=== PATIENT | female | born 1975 | race Caucasian/White ===

== ENCOUNTER 2018-06-17 12:41 | Inpatient (IN) | payer MEDICAID ==
[2018-06-17 14:42] LABS: URINE PH (Dip) POC 5.5 (5.0-8.5)
[2018-06-17 14:42] LABS: URINE BLOOD (Dip) POC 2+ (NEGATIVE); URINE KETONES (Dip) POC Negative (NEGATIVE); URINE LEUKOCYTE EST (Dip) POC Trace (NEGATIVE); URINE NITRITE (Dip) POC Positive (NEGATIVE); URINE TOTAL PROTEIN POC 3+ (NEGATIVE)
[2018-06-17 14:43] LABS: ADD MAN DIFF? NO
[2018-06-17 14:46] LABS: WHITE BLOOD COUNT 18.9 10^3/ul (4.8-10.8)
[2018-06-17 14:47] LABS: BASOPHIL # 0.1 10^3/ul (0.0-0.1); BASOPHILS % 0.6 % (0.0-2.0); EOSINOPHILS # 0.5 10^3/ul (0.0-0.5); EOSINOPHILS % 2.9 % (0.0-7.0); HEMATOCRIT 29.6 % (37.0-47.0); HEMOGLOBIN 9.3 g/dl (12.0-16.0); LYMPHOCYTES # 2.8 10^3/ul (0.8-2.9); LYMPHOCYTES % 14.9 % (15.0-51.0); MEAN CORPUSCULAR HEMOGLOBIN 26.3 pg (29.0-33.0); MEAN CORPUSCULAR HGB CONC 31.4 g/dl (32.0-37.0); MEAN CORPUSCULAR VOLUME 83.9 fl (82.0-101.0); MONOCYTE # 1.5 10^3/ul (0.3-0.9); NEUTROPHIL # 13.6 10^3/ul (1.6-7.5); NEUTROPHILS % 72.1 % (39.0-77.0); NUCLEATED RED BLOOD CELLS% 0.1 /100WBC (0.0-0.0); PLATELET COUNT 282 10^3/UL (140-415); RED BLOOD COUNT 3.53 10^6/ul (4.20-5.40); RED CELL DISTRIBUTION WIDTH 14.6 % (11.5-14.5)
[2018-06-17] MEDS: ALBUTEROL 0.083% (NEB) 2.5 MG/3 ML AMP INH (14:51)
[2018-06-17] MEDS: IPRATROPIUM (NEB) 0.5 MG/2.5 ML AMP INH (14:51)
[2018-06-17 15:06] LABS: ANION GAP 16 (8-16); BLOOD UREA NITROGEN 38 mg/dl (7-20); CALCIUM 8.9 mg/dl (8.4-10.2); CARBON DIOXIDE 22 mmol/L (21-31); CHLORIDE 108 mmol/L (97-110); GLUCOSE 216 mg/dl (70-220); INR 0.98; POTASSIUM 3.8 mmol/L (3.5-5.1); PROTIME 13.1 Sec (11.9-14.9); SODIUM 142 mmol/L (135-144)
[2018-06-17 15:07] LABS: PARTIAL THROMBOPLASTIN TIME 27.5 Sec (25.0-35.0)
[2018-06-17 15:09] LABS: D-DIMER 1337.98 ng/ml (<460)
[2018-06-17 15:18] LABS: B-TYPE NATRIURETIC PEPTIDE 6020 PG/ML (0-125); TROPONIN-I 0.022 ng/ml (0.000-0.120)
[2018-06-17] MEDS: SOD CHLORIDE 0.9% 1,000 ML IV ×2 (15:44→18:14)
[2018-06-17] MEDS: CEFTRIAXONE 1 GM/50 ML (PMX) 50 ML IVPB (15:46)
[2018-06-17] MEDS ORDERED: HYDROCODONE/APAP (5/325) TAB PO (16:00)
[2018-06-17] MEDS ORDERED: MAGNESIUM HYDROXIDE 30ML CUP PO (16:00)
[2018-06-17] MEDS ORDERED: ONDANSETRON 4 MG INJ IV (16:00)
[2018-06-17] MEDS ORDERED: BISACODYL (EC) 5 MG TAB PO (16:00)
[2018-06-17] MEDS ORDERED: NACL 0.9% 3 ML SYG IV (16:00)
[2018-06-17] MEDS ORDERED: ALBUTEROL/IPRATROPIUM (NEB) 3 ML AMP HHN (16:00)
[2018-06-17] MEDS ORDERED: DOCUSATE SODIUM 100 MG CAP PO (16:00)
[2018-06-17] MEDS ORDERED: GLUCAGON 1 MG INJ IM (16:30)
[2018-06-17] MEDS ORDERED: GLUCOSE GEL 15 GRAM TUBE PO ×2 (16:30)
[2018-06-17] MEDS ORDERED: DEXTROSE 50% 50 ML SYRINGE IV ×2 (16:30)
[2018-06-17] MEDS ORDERED: GLUCOSE GEL 15 GRAM TUBE BUCCAL (16:30)
[2018-06-17] MEDS: ACETAMINOPHEN 325 MG TAB PO (18:13)
[2018-06-17] MEDS: AZITHROMYCIN 500MG/NS (PMX) 250 ML IV (18:13)
[2018-06-17 19:18] LABS: ADD UMIC YES; UR ASCORBIC ACID NEGATIVE (NEGATIVE); UR BACTERIA FEW /HPF (NONE SEEN); UR BILIRUBIN (Dip) NEGATIVE (NEGATIVE); UR BLOOD (Dip) 2+ mg/dL (NEGATIVE); UR CLARITY SLIGHTLY CLOUDY (CLEAR); UR COLOR YELLOW (YELLOW); UR GLUCOSE (Dip) 2+ mg/dL (NEGATIVE); UR KETONES (Dip) NEGATIVE (NEGATIVE); UR LEUKOCYTE ESTERASE (Dip) TRACE Leu/ul (NEGATIVE); UR MUCUS FEW /HPF (NONE SEEN); UR NITRITE (Dip) NEGATIVE (NEGATIVE); UR RBC 3 /HPF (0-5); UR SPECIFIC GRAVITY (Dip) 1.015 (1.003-1.030); UR SQUAMOUS EPITHELIAL CELL FEW /HPF (FEW); UR TOTAL PROTEIN (Dip) 2+ mg/dl (NEGATIVE); UR UROBILINOGEN (Dip) NEGATIVE (NEGATIVE); UR WBC 9 /HPF (0-5)
[2018-06-17 19:22] LABS: LACTIC ACID 1.5 mmol/L (0.5-2.0)
[2018-06-17] MEDS: ATORVASTATIN 20 MG TAB PO (20:03)
[2018-06-17] MEDS: METOPROLOL 25 MG TAB PO (20:05)
[2018-06-17] MEDS: INSULIN ASPART [NOVOLOG] 3 ML PEN SC ×3 (20:51→22:45)
[2018-06-17] MEDS: ALBUTEROL/IPRATROPIUM (NEB) 3 ML AMP HHN (20:55)
[2018-06-17] MEDS: GUAIFENESIN/CODEINE 5ML CUP PO (21:40)
[2018-06-17] MEDS: LEVOFLOXACIN 500MG/D5W (PMX) 100 ML IVPB (21:43)
[2018-06-17] MEDS: INSULIN GLARGINE [LANTus] (100 UNITS/ML) SYG SC (22:40)
[2018-06-18] MEDS: ACCU-CHEK XX (02:00)
[2018-06-18 06:14] LABS: ADD MAN DIFF? NO
[2018-06-18 06:40] LABS: BASOPHIL # 0.1 10^3/ul (0.0-0.1); BASOPHILS % 0.8 % (0.0-2.0); EOSINOPHILS # 0.5 10^3/ul (0.0-0.5); HEMATOCRIT 25.1 % (37.0-47.0); HEMOGLOBIN 7.9 g/dl (12.0-16.0); LYMPHOCYTES # 1.7 10^3/ul (0.8-2.9); LYMPHOCYTES % 13.8 % (15.0-51.0); MEAN CORPUSCULAR HEMOGLOBIN 26.5 pg (29.0-33.0); MEAN CORPUSCULAR HGB CONC 31.5 g/dl (32.0-37.0); MEAN CORPUSCULAR VOLUME 84.2 fl (82.0-101.0); MEAN PLATELET VOLUME 10.8 fl (7.4-10.4); MONOCYTE # 1.1 10^3/ul (0.3-0.9); MONOCYTES % 9.4 % (0.0-11.0); NEUTROPHIL # 8.6 10^3/ul (1.6-7.5); NEUTROPHILS % 71.2 % (39.0-77.0); PLATELET COUNT 218 10^3/UL (140-415); RED BLOOD COUNT 2.98 10^6/ul (4.20-5.40); RED CELL DISTRIBUTION WIDTH 14.7 % (11.5-14.5)
[2018-06-18 06:40] LABS: WHITE BLOOD COUNT 12.1 10^3/ul (4.8-10.8)
[2018-06-18 07:02] LABS: ALANINE AMINOTRANSFERASE 12 IU/L (13-69); ALBUMIN 2.8 g/dl (3.3-4.9); ALKALINE PHOSPHATASE 84 IU/L (42-121); ANION GAP 13 (8-16); ASPARTATE AMINO TRANSFERASE 17 IU/L (15-46); BILIRUBIN,INDIRECT 0.2 mg/dl (0-1.1); BILIRUBIN,TOTAL 0.2 mg/dl (0.2-1.3); BLOOD UREA NITROGEN 34 mg/dl (7-20); CARBON DIOXIDE 22 mmol/L (21-31); CHLORIDE 113 mmol/L (97-110); CREATININE 2.25 mg/dl (0.44-1.00); GLUCOSE 132 mg/dl (70-220); MAGNESIUM 1.9 mg/dl (1.7-2.5); POTASSIUM 4.1 mmol/L (3.5-5.1); SODIUM 144 mmol/L (135-144); TOTAL PROTEIN 5.9 g/dl (6.1-8.1)
[2018-06-18] MEDS: ALBUTEROL/IPRATROPIUM (NEB) 3 ML AMP HHN ×3 (07:45→19:47)
[2018-06-18] MEDS: INSULIN ASPART [NOVOLOG] 3 ML PEN SC ×7 (07:49→20:28)
[2018-06-18] MEDS: METOPROLOL 25 MG TAB PO ×2 (08:04→20:25)
[2018-06-18] MEDS: LISINOPRIL 5 MG TAB PO (08:04)
[2018-06-18 08:11] LABS: HEMOGLOBIN A1C 8.5 % (0-5.9)
[2018-06-18] MEDS ORDERED: LABETALOL HCL 20MG INJ IV (10:30)
[2018-06-18] MEDS: AMLODIPINE 5 MG TAB PO (11:57)
[2018-06-18] MEDS: LEVOFLOXACIN 250MG/D5W (PMX) 50 ML IVPB (15:21)
[2018-06-18] MEDS: ACETAMINOPHEN 325 MG TAB PO (16:12)
[2018-06-18] MEDS: ATORVASTATIN 20 MG TAB PO (20:24)
[2018-06-18] MEDS: INSULIN GLARGINE [LANTus] (100 UNITS/ML) SYG SC (20:27)
[2018-06-19] MEDS: ACCU-CHEK XX (02:00)
[2018-06-19 06:17] LABS: ADD MAN DIFF? NO
[2018-06-19 06:30] LABS: BASOPHIL # 0.1 10^3/ul (0.0-0.1); BASOPHILS % 0.8 % (0.0-2.0); EOSINOPHILS # 0.5 10^3/ul (0.0-0.5); EOSINOPHILS % 4.8 % (0.0-7.0); HEMATOCRIT 25.1 % (37.0-47.0); LYMPHOCYTES # 1.7 10^3/ul (0.8-2.9); LYMPHOCYTES % 16.2 % (15.0-51.0); MEAN CORPUSCULAR HGB CONC 31.9 g/dl (32.0-37.0); MEAN CORPUSCULAR VOLUME 84.8 fl (82.0-101.0); MEAN PLATELET VOLUME 10.6 fl (7.4-10.4); MONOCYTES % 9.4 % (0.0-11.0); NEUTROPHILS % 67.7 % (39.0-77.0); PLATELET COUNT 229 10^3/UL (140-415); RED BLOOD COUNT 2.96 10^6/ul (4.20-5.40); RED CELL DISTRIBUTION WIDTH 14.5 % (11.5-14.5)
[2018-06-19 06:30] LABS: WHITE BLOOD COUNT 10.3 10^3/ul (4.8-10.8)
[2018-06-19 07:19] LABS: ANION GAP 15 (8-16); BLOOD UREA NITROGEN 34 mg/dl (7-20); CALCIUM 8.5 mg/dl (8.4-10.2); CARBON DIOXIDE 22 mmol/L (21-31); CHLORIDE 112 mmol/L (97-110); CREATININE 2.09 mg/dl (0.44-1.00); GLUCOSE 87 mg/dl (70-220); POTASSIUM 4.1 mmol/L (3.5-5.1); SODIUM 145 mmol/L (135-144)
[2018-06-19] MEDS: INSULIN ASPART [NOVOLOG] 3 ML PEN SC ×6 (07:58→17:20)
[2018-06-19] MEDS: ALBUTEROL/IPRATROPIUM (NEB) 3 ML AMP HHN ×2 (08:06→14:09)
[2018-06-19] MEDS: AMLODIPINE 5 MG TAB PO (08:29)
[2018-06-19] MEDS: METOPROLOL 25 MG TAB PO (08:29)
[2018-06-19 13:09] LABS: ADD UMIC YES; UR ASCORBIC ACID NEGATIVE (NEGATIVE); UR BILIRUBIN (Dip) NEGATIVE (NEGATIVE); UR BLOOD (Dip) 1+ mg/dL (NEGATIVE); UR CLARITY CLEAR (CLEAR); UR COLOR STRAW (YELLOW); UR GLUCOSE (Dip) NEGATIVE (NEGATIVE); UR KETONES (Dip) NEGATIVE (NEGATIVE); UR LEUKOCYTE ESTERASE (Dip) NEGATIVE Leu/ul (NEGATIVE); UR NITRITE (Dip) NEGATIVE (NEGATIVE); UR RBC 4 /HPF (0-5); UR TOTAL PROTEIN (Dip) 2+ mg/dl (NEGATIVE); UR UROBILINOGEN (Dip) NEGATIVE (NEGATIVE); UR WBC 12 /HPF (0-5)
[2018-06-19 13:15] LABS: SODIUM,URINE RANDOM 99 mmol/L (30-90)
[2018-06-19] MEDS: LEVOFLOXACIN 250MG/D5W (PMX) 50 ML IVPB (16:00)
[2018-06-21 19:11] LABS: CREATININE, RANDOM URINE 57 mg/dL (20-320); MICROALBUMIN 61.7 mg/dL; MICROALBUMIN/CREATININE RATIO 1082 (<30)
== END 2018-06-19 18:09 | disposition home or self-care (01) | DRG 871 ==
LOC: FTE 12:41 → 6WM 16:01
DX: A41.9 Sepsis, unspecified organism (principal); J18.9 Pneumonia, unspecified organism; N39.0 Urinary tract infection, site not specified; N17.9 Acute kidney failure, unspecified; E11.21 Type 2 diabetes mellitus with diabetic nephropathy; E11.22 Type 2 diabetes mellitus with diabetic chronic kidney disease; E11.40 Type 2 diabetes mellitus with diabetic neuropathy, unspecified; E11.319 Type 2 diabetes mellitus with unspecified diabetic retinopathy without macular edema; E78.5 Hyperlipidemia, unspecified; I12.9 Hypertensive chronic kidney disease with stage 1 through stage 4 chronic kidney disease, or unspecified chronic kidney disease; N18.9 Chronic kidney disease, unspecified; Z79.4 Long term (current) use of insulin; Z79.84 Long term (current) use of oral hypoglycemic drugs
CPT/HCPCS: 36415; 71045; 76775; 80048; 80053; 81001; 81003; 81025; 82043; 82962; 83036; 83605; 83735; 83880; 84100; 84155; 84300; 84484; 85025; 85378; 85610; 85730; 87040; 87086; 93005; 93306; 94640; 94664; 96374; 99285-25